=== PATIENT | female | born 1995 | race Caucasian/White ===

== ENCOUNTER 2024-06-11 18:48 | Emergency (ER) | payer MEDICAID ==
[~2024-06-11] VITALS: Ht 162.6 cm; Wt 60.0 kg
[2024-06-11 18:52] VITALS: O2SAT 98
[2024-06-11] MEDS: FAMOTIDINE 20MG TABLET PO STA (19:11)
[2024-06-11] MEDS: PREDNISONE 20MG TABLET PO ONE (19:12)
[2024-06-11] MEDS: DIPHENHYDRAMINE 50MG/ML VIAL IM STA (19:12)
[2024-06-11] MEDS: HYDROCODONE/ACETAMINOPHEN 5/325MG TABLET PO STA (19:32)
[2024-06-11] MEDS ORDERED: FAMO40TA70 MT (20:56)
[2024-06-11] MEDS ORDERED: DIPH25CA83 MT (20:56)
[2024-06-11] MEDS ORDERED: P20 PO (20:56)
[2024-06-11 21:36] VITALS: BP 137/91; PULSE 82; RESP 16; TEMP 37
== END 2024-06-11 21:54 | disposition home or self-care (01) ==
LOC: ER 18:48
DX: T78.40XA Allergy, unspecified, initial encounter (principal); X58.XXXA Exposure to other specified factors, initial encounter
CPT/HCPCS: 99284; 96372; J7512; J1200